=== PATIENT | male | born 1980 | race Caucasian/White ===

== ENCOUNTER 2017-02-19 03:14 | Inpatient (IN) | payer BC ==
--- NOTE | ~2017-02-19 | DS ---
Discharge Summary [facility] [address] [place]. [address] NAME: AMERICO DEAN : 82 STATUS : DIS IN PAT#: [id number] AGE: 36 ADM/REG DATE : 02/19/17 MR#: [id number] REPORT SERV DATE: 02/21/17 DICTATED BY: ELVIA GÓMEZ DATE: 02/20/17 REPORT STATUS : Draft TRANSCRIBED BY: MODL DATE: 02/20/17 ADMISSION DATE: 02/19/2017 DISCHARGE DATE: 02/20/2017 PRINCIPAL DIAGNOSES: Diabetic ketoacidosis and type 1 diabetes mellitus. SECONDARY DIAGNOSES: Acute gastroenteritis with intractable nausea, vomiting, diarrhea. HISTORY OF PRESENT ILLNESS: Please see Dr. Lovelace's dictation on 02/19/2017. HOSPITAL COURSE: Admitted with DKA following episodes of nausea, vomit, diarrhea, unable to eat and did not missed his insulin. The patient received an insulin infusion. Actually quickly improved his nausea and vomiting, although diarrhea persisted. Efforts were made to get him off the insulin drip after anion gap had closed with resumption of basal low-dose insulin; however, there were delays in basal dosing he went back into DKA due to the systems errors; however, his gap once again closed during the evening. He had hypoglycemia overnight, but the patient says this was very typical of him to be hypoglycemic in the wee hours of the morning and then have high sugar when he wakes up. It was felt that adjusting his insulin to have 30 units of 70/30 in the a.m. and 15 units in the p.m. may result in less hypoglycemic events, and therefore less of a zaida phenomenon thereafter. However, there was also a possibility that he would just result in higher highs in the morning and that should be consider for an insulin pump due to brittle diabetes. He was given referral to [facility] for followup as he had no primary care provider, but otherwise Phenergan p.r.n., the 70/30 as mentioned. ACTIVITY: As tolerated. DIET: 2100 calorie ADA diet. RSM/SUSANA Elvia Gómez M.D. / [id number] CC: Elvia Gómez M.D. [facility]
--- NOTE | ~2017-02-19 | HP ---
History And Physical [place] [id number] [facility] [place]. [address] NAME: AMERICO DEAN : 82 STATUS : ADM IN [facility]#: [id number] AGE: 36 ADM/REG DATE : 02/19/17 MR#: [id number] REPORT SERV DATE: 02/19/17 DICTATED BY: BEATRIS OLIVER DATE: 02/19/17 REPORT STATUS : Draft TRANSCRIBED BY: MODL DATE: 02/19/17 DATE OF ADMISSION: 02/19/2017 CHIEF COMPLAINT: A 36-year-old male with no primary care physician, presenting with uncontrolled diabetes and evidence of diabetic ketoacidosis. HISTORY OF PRESENT ILLNESS: The patient's history was obtained through an interview with the patient and , coupled with review of [facility] medical records. The patient admits that he has poorly-controlled diabetes. He has no actual prescription for insulin, but will simply purchase it from [facility]. He uses 70/30 b.i.d. and a regular insulin before meals, but he notes that his blood sugars are always around the 200s to 300s and are never controlled beyond that level. For the last 24 hours, the patient has been increasingly ill. His describes him as lethargic and even somewhat confused at times. He has been lightheaded and very weak. He has also developed nausea, vomiting, and loose stools. He describes left lower quadrant abdominal pain, a cramping quality, mild in severity. No fevers or chills. No shortness of breath. No chest pain. No cough. REVIEW OF SYSTEMS: Otherwise, a 14-point review of systems was obtained was negative. PAST MEDICAL HISTORY: 1. Diabetes, diagnosed when he was 22 years old. 2. Cellulitis. 3. Neuropathy. 4. No cardiac disease. No lung disease. PAST SURGICAL HISTORY: Denies any. ALLERGIES: NO KNOWN DRUG ALLERGIES. SOCIAL HISTORY: , lives in [place], [place], unemployed. He has step children, ages 11 and 14, but no biological children. He has never been a smoker. Does not drink alcohol. FAMILY HISTORY: Diabetes and heart disease. CURRENT MEDICATIONS: Novolin 70/30, 20 units twice a day at breakfast and supper; regular insulin 15 to 20 units before each meal, otherwise, medications unknown. We have requested pharmacy to pursue a medication list. PHYSICAL EXAMINATION: History And Physical [address] [place]. [address] NAME: AMERICO DEAN : 82 STATUS : ADM IN [facility]#: [id number] AGE: 36 ADM/REG DATE : 02/19/17 MR#: [id number] REPORT SERV DATE: 02/19/17 DICTATED BY: BEATRIS OLIVER DATE: 02/19/17 REPORT STATUS : Draft TRANSCRIBED BY: MODTho DATE: 02/19/17 VITAL SIGNS: Temperature 98.4, pulse 111, blood pressure 157/88, respiratory rate 20, and O2 saturation 98% on room air. GENERAL: An ill-appearing male, diaphoretic, lethargic, but arousable and cooperative. HEENT: Pupils are equal, round, and reactive to light. No conjunctival pallor. No scleral icterus. Nares are patent. Oropharynx is clear of obstruction. Dry mucous membranes. NECK: Trachea midline. No thyromegaly. LYMPH: No cervical lymphadenopathy. No supraclavicular lymphadenopathy. RESPIRATORY: Clear to auscultation at bases. No wheezes, rales, or rhonchi. Normal respiratory effort. CARDIOVASCULAR: Tachycardic. Regular rhythm. No murmurs, rubs, or gallops. No extremity edema is appreciated. ABDOMEN: Soft, nontender, and nondistended. Normal bowel sounds auscultated throughout. No hepatosplenomegaly. DERMATOLOGICAL: Diaphoretic. Warm extremities. No pallor. No cyanosis. PSYCHIATRIC: Lethargic, but arousable. Oriented x3. Flat affect. Good mood. LABORATORY DATA: Serum acetone level is positive. ABG demonstrates pH 7.29, a PaCO2 of 27, a PaO2 of 84, and a bicarb of 12. White blood cell count 7.9, hemoglobin 15, hematocrit 43, and platelets 121. Sodium 139, potassium 5.1, chloride 102, bicarb 20, BUN 21, creatinine 1.27, glucose 452, total bilirubin 1.3, and lipase 74. STUDIES: 1. Chest x-ray by my own evaluation shows no acute cardiopulmonary process. 2. EKG by my own evaluation shows sinus rhythm, no major abnormalities. ASSESSMENT AND PLAN: 1. Diabetic ketoacidosis. Place on insulin drip. IV fluids. Initiate standard diabetic ketoacidosis order set. Check hemoglobin A1c. Obtain a medical educator consult. 2. Vomiting. We will check a gastric emptying study. Provide supportive care. 3. Acute kidney injury. Place on IV fluids and monitor. KPL/MODL Beatris Oliver M.D. / [id number] CC: Kel Astorga M.D.
[2017-02-19 02:12] LABS: BASOPHILS 0.1 %; BASOPHILS ABSOLUTE 0.01 10/3/uL (0.0-0.16); EOSINOPHILS 0.3 %; EOSINOPHILS ABSOLUTE 0.02 10/3/uL (0.0-0.53); ER CBC TAT 0 Hrs 05 Mins; HEMATOCRIT 42.9 % (40.0-51.0); HEMOGLOBIN 15.4 g/dL (13.6-17.8); IMMATURE GRANULOCYTES 0.1 %; LYMPHOCYTES 2.3 %; LYMPHOCYTES ABSOLUTE 0.18 10/3/uL (0.67-4.30); MEAN CORPUS HGB CONC 35.9 g/dL (32.0-36.0); MEAN CORPUSCULAR HEMOGLOB 30.6 pg (26.0-34.0); MEAN CORPUSCULAR VOLUME 85.3 fL (80-100); MEAN PLATELET VOLUME 11.6 fL (9.2-13.0); MONOCYTES ABSOLUTE 0.47 10/3/uL (0.21-1.20); NEUTROPHILS 91.2 %; RBC DISTRIBUTION WIDTH 12.3 % (12.0-16.0); RED CELL COUNT 5.03 10/6/uL (4.7-6.1); WHITE BLOOD CELLS 7.9 10/3/uL (4.5-10.5)
[2017-02-19 02:14] LABS: IMMATURE GRANULOCYTES ABSOLUTE 0.01 10/3/uL (0.0-0.11); MANUAL DIFF NO %; PLATELET COUNT 121 10/3/uL (150-400)
[2017-02-19 02:26] LABS: A/G RATIO 1.2 (0.7-1.9); ALBUMIN 3.8 G/DL (3.5-5.0); ALKALINE PHOSPHATASE 88 U/L (45-117); CALCIUM, SERUM 9.1 MG/DL (8.5-10.4); CHLORIDE, SERUM 102 MMOL/L (96-112); GLOBULIN 3.2 G/DL (2.5-4.1); SGOT(AST) 16 U/L (5-40); SGPT(ALT) 18 U/L (5-65); SODIUM, SERUM 139 MMOL/L (135-148); TOTAL BILIRUBIN 1.3 MG/DL (0-1.2)
[2017-02-19 02:30] LABS: BUN (BLOOD UREA NITROGEN) 21 MG/DL (6-23); CO2 (CARBON DIOXIDE) 20 MMOL/L (24-34); POTASSIUM, SERUM 5.1 MMOL/L (3.5-5.3)
[2017-02-19 02:31] LABS: CREATININE 1.27 MG/DL (0.70-1.30); GFR AFRICAN AMERICAN 84 ML/MIN (>=60); GFR NON AFRICAN AMERICAN 73 ML/MIN (>=60); GLUCOSE, SERUM 452 MG/DL (60-99)
[2017-02-19 02:56] LABS: BAND NEUTROPHILS 11 %; ER DIFF TAT 0 Hrs 49 Mins; LYMPHOCYTES 3 %; LYMPHOCYTES ABSOLUTE (CALC) 0.24 10/3/uL (0.67-4.30); MONOCYTES 5 %; NEUTROPHILS ABSOLUTE (CALC) 7.27 10/3/uL (2.02-8.40); PLATELET ESTIMATE SLT DEC (ADEQUATE); RBC MORPHOLOGY NORM (NORMAL); SEGMENTED NEUTROPHIL (0) 81 %; TOTAL NUCLEATED CELLS 100
[2017-02-19 03:23] LABS: BE (BASE EXCESS) -11.9 MEQ/L (0 +/- 2.5); CARBOXYHEMOGLOBIN 1.4 % (0-3); HCO3 (ACTUAL BICARBONATE) 12.8 MEQ/L (23-27); HEMOBLOGIN CONTENT 14.5 G/DL (14-18); INSTRUMENT SERIAL # 8087; METHEMOGLOBIN 0.4 % (0-3); PCO2 (CO2 TENSION) 27 MMHG (35-45); PO2 (O2 TENSION) 85 MMHG (79-93); SAMPLE Arterial
[2017-02-19 03:23] LABS: ACETONE SMALL
[2017-02-19 03:49] LABS: ASCORBIC ACID (UR NOT ORDER) NEG (NEG); BILIRUBIN, URINE NEGATIVE (NEG); ER URINALYSIS TAT 0 Hrs 00 Mins; KETONE, URINE 80 MG/DL (NEG); LEUKOCYTE ESTERASE(NOT OR NEG (NEG); NITRITE (URINE) NEG (NEG); WBC (NOT ORDERED) (RFLEX) 1 (0-5)
[2017-02-19] MEDS ORDERED: INSNOV7030 SC (11:11)
[2017-02-19] MEDS ORDERED: INSNOVN SC (11:12)
[2017-02-19 11:21] LABS: BASOPHILS 0.1 %; BASOPHILS ABSOLUTE 0.01 10/3/uL (0.0-0.16); EOSINOPHILS 0 %; HEMOGLOBIN 13.2 g/dL (13.6-17.8); IMMATURE GRANULOCYTES 0.1 %; IMMATURE GRANULOCYTES ABSOLUTE 0.01 10/3/uL (0.0-0.11); LYMPHOCYTES 3.6 %; LYMPHOCYTES ABSOLUTE 0.25 10/3/uL (0.67-4.30); MEAN CORPUS HGB CONC 35.3 g/dL (32.0-36.0); MEAN PLATELET VOLUME 11.3 fL (9.2-13.0); MONOCYTES 6.7 %; MONOCYTES ABSOLUTE 0.46 10/3/uL (0.21-1.20); NEUTROPHILS 89.5 %; NEUTROPHILS ABSOLUTE 6.13 10/3/uL (2.02-8.40); PLATELET COUNT 124 10/3/uL (150-400); RBC DISTRIBUTION WIDTH 12.8 % (12.0-16.0); WHITE BLOOD CELLS 6.9 10/3/uL (4.5-10.5)
[2017-02-19 11:22] LABS: HEMATOCRIT 37.4 % (40.0-51.0); MANUAL DIFF NO %
[2017-02-19 11:30] LABS: INTERNATIONAL NORMAL RATI 1.1 UNITS (-); PARTIAL THROMBO TIME 35.6 SEC (22.5-37.2); PROTIME (NOT ORD) 14.3 SEC (12.0-14.5)
[2017-02-19 11:44] LABS: BUN (BLOOD UREA NITROGEN) 24 MG/DL (6-23); CHLORIDE, SERUM 107 MMOL/L (96-112); CO2 (CARBON DIOXIDE) 24 MMOL/L (24-34); CREATININE 1.51 MG/DL (0.70-1.30); GFR AFRICAN AMERICAN 68 ML/MIN (>=60); GFR NON AFRICAN AMERICAN 59 ML/MIN (>=60); PHOSPHORUS, SERUM 2.9 MG/DL (2.5-4.5); POTASSIUM, SERUM 4.2 MMOL/L (3.5-5.3); SGOT(AST) 14 U/L (5-40); SGPT(ALT) 18 U/L (5-65); SODIUM, SERUM 139 MMOL/L (135-148); TOTAL PROTEIN 5.6 G/DL (6.0-8.5); TROPONIN I <0.02 NG/ML (<0.05); ULTRASENSITIVE TSH 0.327 MCIU/ML (0.358-3.740)
[2017-02-19 11:45] LABS: A/G RATIO 1.2 (0.7-1.9); ALKALINE PHOSPHATASE 65 U/L (45-117); GLOBULIN 2.6 G/DL (2.5-4.1); GLUCOSE, SERUM 229 MG/DL (60-99); TOTAL BILIRUBIN 0.8 MG/DL (0-1.2)
[2017-02-19 15:46] LABS: BUN (BLOOD UREA NITROGEN) 24 MG/DL (6-23); CALCIUM, SERUM 8.2 MG/DL (8.5-10.4); CHLORIDE, SERUM 100 MMOL/L (96-112); CO2 (CARBON DIOXIDE) 21 MMOL/L (24-34); GFR AFRICAN AMERICAN 82 ML/MIN (>=60); GFR NON AFRICAN AMERICAN 71 ML/MIN (>=60); POTASSIUM, SERUM 4.4 MMOL/L (3.5-5.3); SODIUM, SERUM 133 MMOL/L (135-148)
[2017-02-19 15:47] LABS: GLUCOSE, SERUM 408 MG/DL (60-99)
[2017-02-19 18:33] LABS: BUN (BLOOD UREA NITROGEN) 22 MG/DL (6-23); CHLORIDE, SERUM 103 MMOL/L (96-112); CO2 (CARBON DIOXIDE) 21 MMOL/L (24-34); CREATININE 1.29 MG/DL (0.70-1.30); GFR AFRICAN AMERICAN 83 ML/MIN (>=60); GFR NON AFRICAN AMERICAN 71 ML/MIN (>=60); PHOSPHORUS, SERUM 2.2 MG/DL (2.5-4.5); POTASSIUM, SERUM 4.2 MMOL/L (3.5-5.3); SODIUM, SERUM 136 MMOL/L (135-148)
[2017-02-19 18:35] LABS: GLUCOSE, SERUM 312 MG/DL (60-99)
[2017-02-19 23:18] LABS: BUN (BLOOD UREA NITROGEN) 19 MG/DL (6-23); CALCIUM, SERUM 7.9 MG/DL (8.5-10.4); CHLORIDE, SERUM 108 MMOL/L (96-112); CO2 (CARBON DIOXIDE) 30 MMOL/L (24-34); CREATININE 1.07 MG/DL (0.70-1.30); GFR AFRICAN AMERICAN 104 ML/MIN (>=60); GFR NON AFRICAN AMERICAN 89 ML/MIN (>=60); GLUCOSE, SERUM 77 MG/DL (60-99); PHOSPHORUS, SERUM 2.9 MG/DL (2.5-4.5); POTASSIUM, SERUM 3.5 MMOL/L (3.5-5.3); SODIUM, SERUM 143 MMOL/L (135-148)
[2017-02-20 06:42] LABS: BUN (BLOOD UREA NITROGEN) 16 MG/DL (6-23); CHLORIDE, SERUM 105 MMOL/L (96-112); CO2 (CARBON DIOXIDE) 26 MMOL/L (24-34); CREATININE 0.95 MG/DL (0.70-1.30); GFR AFRICAN AMERICAN 120 ML/MIN (>=60); GFR NON AFRICAN AMERICAN 103 ML/MIN (>=60); GLUCOSE, SERUM 245 MG/DL (60-99); PHOSPHORUS, SERUM 2.2 MG/DL (2.5-4.5); POTASSIUM, SERUM 4.2 MMOL/L (3.5-5.3); SODIUM, SERUM 140 MMOL/L (135-148)
[2017-02-20 11:31] LABS: BUN (BLOOD UREA NITROGEN) 17 MG/DL (6-23); CALCIUM, SERUM 7.9 MG/DL (8.5-10.4); CHLORIDE, SERUM 105 MMOL/L (96-112); CO2 (CARBON DIOXIDE) 25 MMOL/L (24-34); CREATININE 1.04 MG/DL (0.70-1.30); GFR AFRICAN AMERICAN 107 ML/MIN (>=60); GFR NON AFRICAN AMERICAN 93 ML/MIN (>=60); GLUCOSE, SERUM 400 MG/DL (60-99); PHOSPHORUS, SERUM 1.5 MG/DL (2.5-4.5); POTASSIUM, SERUM 4.4 MMOL/L (3.5-5.3); SODIUM, SERUM 138 MMOL/L (135-148)
[2017-02-20] MEDS ORDERED: PR25 PO (14:42)
== END 2017-02-20 16:20 | disposition home or self-care (01) | DRG 638 ==
LOC: ER 03:14 → 1SO 03:58
PROVIDERS: Internal Medicine; Specialist
DX: E10.10 Type 1 diabetes mellitus with ketoacidosis without coma (principal); N17.9 Acute kidney failure, unspecified; E10.649 Type 1 diabetes mellitus with hypoglycemia without coma; G62.9 Polyneuropathy, unspecified; K52.9 Noninfective gastroenteritis and colitis, unspecified; Z79.4 Long term (current) use of insulin
CPT/HCPCS: 36600; 74022; 80048; 80053; 81001; 82009; 82150; 82805; 82962; 83036; 83690; 83735; 84100; 84443; 84484; 85025; 85610; 85730; 93005; 96365; 99285; A9270-GY; J2405; J2550